=== PATIENT | male | born 1950 ===

== ENCOUNTER 2016-11-02 13:52 | Emergency (ER) | payer OTHER ==
[2016-11-02 14:02] VITALS: BP 131/71; PULSE 67; RESP 19; TEMP 98.9; O2SAT 100
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
== END 2016-11-02 16:00 | disposition left against medical advice (07) ==
LOC: H.ER 13:52
DX: R07.82 Intercostal pain (principal); V43.52XA Car driver injured in collision with other type car in traffic accident, initial encounter; Y92.410 Unspecified street and highway as the place of occurrence of the external cause

== ENCOUNTER 2016-11-02 16:28 | Emergency (ER) | payer OTHER ==
[2016-11-02 17:45] VITALS: BP 126/78; PULSE 56; RESP 16; TEMP 98.5; O2SAT 100
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
[2016-11-02] MEDS ORDERED: Naproxen 500 MG TAB PO STA (22:51)
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
--- NOTE | 2016-11-03 08:33 | CT ---
PROCEDURE: CT Cervical Spine without contrast HISTORY: [facility] COMPARISON: None available. TECHNIQUE: Axial computed tomography images were obtained of the cervical spine without the use of intravenous contrast. Coronal and sagittal reformatted images were created and reviewed. Radiation dose: Total exam DLP = 642.84 mGy-cm. This CT exam was performed using one or more of the following dose reduction techniques: Automated exposure control, adjustment of the mA and/or kV according to patient size, and/or use of iterative reconstruction technique. FINDINGS: VERTEBRAE: There is straightening of the cervical spine with loss of normal cervical lordosis. Vertebral alignment is normal. Vertebral height is maintained. There is no acute fracture or spondylolisthesis. The craniocervical junction is normal. The atlantoaxial joint is normal. DISCS/SPINAL CANAL/NEURAL FORAMINA: There is mild multilevel degenerative disc disease with anterior spurring, mild reduced disc heights and mild multilevel facet arthropathy, worse at C6-7 with moderate right neural foraminal stenosis. No spinal canal stenosis. PARASPINAL SOFT TISSUES: There is no prevertebral soft tissue thickening. OTHER FINDINGS: None. IMPRESSION: No acute fracture or spondylolisthesis. Straightening of the cervical spine may be positional or related to muscle spasm.
--- NOTE | 2016-11-03 09:12 | CT ---
PROCEDURE: CT Chest without contrast HISTORY: Left rib abnormality at sternum COMPARISON: None. TECHNIQUE: Contiguous axial images were obtained through the chest without intravenous contrast enhancement. Sagittal and coronal reconstructions were performed. Radiation dose (DLP): 741.35 mGy-cm. This CT exam was performed using one or more of the following dose reduction techniques: Automated exposure control, adjustment of the mA and/or kV according to patient size, and/or use of iterative reconstruction technique. FINDINGS: LUNGS: There is extensive paraseptal emphysema in the left upper and lower lobes and to a lesser extent in the right lung. There is no evidence of focal consolidation, mass or nodule. There are no endobronchial lesions. There is bibasilar atelectasis. MEDIASTINUM: There. The heart is normal in size. There is no pericardial effusion. There are also calcifications in the coronary arteries. No lymphadenopathy. PLEURA: No pleural fluid. No pneumothorax. BONES: No fracture. No destructive lesion. There are multilevel degenerative changes in the spine. UPPER ABDOMEN: Both adrenal glands are normal in size. There is fatty infiltration in the liver. OTHER FINDINGS: None. IMPRESSION: No acute fracture or destructive bony lesion. Paraseptal emphysema in the left upper and lower lobes. A preliminary report was provided by [email or web address] [facility].
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
== END 2016-11-02 23:36 | disposition home or self-care (01) ==
LOC: H.ER 16:28
DX: R51 Headache (principal); R07.81 Pleurodynia; M54.2 Cervicalgia; V43.52XA Car driver injured in collision with other type car in traffic accident, initial encounter; Y92.410 Unspecified street and highway as the place of occurrence of the external cause; I10 Essential (primary) hypertension; J43.9 Emphysema, unspecified